=== PATIENT | female | born 1945 | race Caucasian/White ===

== ENCOUNTER 2018-11-25 10:03 | Emergency (ER) | payer OTHER ==
[~2018-11-25] VITALS: Ht 160 cm; Wt 90.7 kg
[~2018-11-25 10:03] MED LIST: CELEXA20 MG PO; CIPROFLOXACIN500 M1 PO; HYDROCODONE-AP1 EAC6 PO; HYDROCODONE-APA1 TA1 PO; LEVOTHYROXIN0.112 M1 PO; LIDOCAINE VISC100 M1 SWISH&SPIT; LIPITOR40 MG PO; MIRALAX17 GM PO; OMEPRAZOLE40 MG PO; ZPAK PO
[2018-11-25 12:02] LABS: ABSOLUTE BASOPHILS 0.1 thou/uL (0.0-0.2); ABSOLUTE EOSINOPHILS 0.2 thou/uL (0.0-0.7); ABSOLUTE LYMPHOCYTES 2.6 thou/uL (0.8-5.3); ABSOLUTE MONOCYTES 0.6 thou/uL (0.0-1.2); ABSOLUTE NEUTROPHILS 4.4 thou/uL (1.6-8.1); BASOPHILS 1.3 %; EOSINOPHILS 2.5 %; HEMATOCRIT 45.6 % (37.0-47.0); HEMOGLOBIN 15.3 gm/dL (12.0-15.0); LYMPHOCYTES 32.7 %; MCH 32.6 pg (26.0-34.0); MCHC 33.5 g/dL (28.0-37.0); MCV 97.3 fL (80.0-100.0); MPV 9.5 fl. (7.2-11.1); NUCLEATED RBCS 0 /100WBC; PLATELET COUNT* 241 thou/uL (150-400); POLYS 55.5 %; RBC 4.69 mil/uL (4.20-5.00); RDW-CV 13.4 % (10.5-14.5); WBC 7.9 thou/uL (4.0-11.0)
[2018-11-25 12:14] LABS: ANION GAP 8 mmol/L (7-16); BUN 7 mg/dL (7-18); CALCIUM 8.5 mg/dL (8.5-10.1); CHLORIDE 102 mmol/L (98-107); CO2 28 mmol/L (21-32); CREATININE 0.7 mg/dL (0.6-1.3); GLUCOSE 118 mg/dL (70-99); POTASSIUM 3.4 mmol/L (3.5-5.1); SODIUM 138 mmol/L (136-145)
[2018-11-25 12:34] LABS: ALBUMIN 2.9 g/dL (3.4-5.0); ALKALINE PHOSPHATASE 121 U/L (46-116); NT-PRO BRAIN NAT PEPTIDE 240 pg/mL (<300); SGOT 24 U/L (15-37); SGPT 35 U/L (30-65); TOTAL BILIRUBIN 0.5 mg/dL (<0.1-1.0); TOTAL PROTEIN 6.8 g/dL (6.4-8.2); TROPONIN-I LEVEL <0.06 ng/mL (<0.06)
[2018-11-25] MEDS ORDERED: VENTOLIN HFA 1818 GM INH (12:53)
[2018-11-25] MEDS ORDERED: PREDNISONE 20 M20 MG PO (12:53)
[2018-11-25 13:03] VITALS: BP 198/81
[2018-11-25 13:21] LABS: URINE BILIRUBIN NEGATIVE (Negative); URINE BLOOD TRACE (Negative); URINE CLARITY CLEAR; URINE COLOR YELLOW; URINE GLUCOSE-RANDOM NEGATIVE (Negative); URINE KETONES NEGATIVE (Negative); URINE LEUKOCYTES-REFLEX TRACE (Negative); URINE NITRITE-REFLEX NEGATIVE (Negative); URINE PROTEIN NEGATIVE (Negative); URINE UROBILINOGEN 0.2 E.U./dl (0.2-1.0)
[2018-11-25 13:36] LABS: SQUAMOUS >10 Many /LPF (0-3)
[2018-11-25 13:39] LABS: BACTERIA-REFLEX 1-9 Few /HPF (None Seen); CASTS None Seen /LPF (None Seen); CRYSTALS None Seen /LPF (None Seen); MUCUS None Seen strn/LPF (None Seen); URINE RBC 0-2 Rare /HPF (0-2); URINE WBC-REFLEX 0-5 Rare /HPF (0-5)
--- NOTE | 2018-11-26 16:59 | EKG ---
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 : 1945 Requested By: Eunice Hamlin Order Number: [id number] MD: Alonzo Galvan Measurements Intervals [place] Rate: 58 P: 57 CO: 184 QRS: 31 QRSD: 80 T: 62 QT: 465 QTc: 457 Interpretive Statements Sinus rhythm Ventricular premature complex Minimal ST depression, lateral leads Compared to ECG 09/02/2016 12:37:09 Ventricular premature complex(es) now present ST (T wave) deviation now present Electronically Signed On 11-26-2018 16:59:11 CDT by Alonzo Galvan [email or web address] <ELECTRONICALLY SIGNED> By: Alonzo Galvan MD, [facility] 11/26/18 1659 1144 1144 Alonzo Galvan MD, [facility] /EPI
== END 2018-11-25 13:04 | disposition home or self-care (01) ==
LOC: M.ERS 10:03
PROVIDERS: Nurse Practitioner Family
DX: J40 Bronchitis, not specified as acute or chronic (principal); I10 Essential (primary) hypertension; K21.9 Gastro-esophageal reflux disease without esophagitis; E78.00 Pure hypercholesterolemia, unspecified; F17.210 Nicotine dependence, cigarettes, uncomplicated; Z88.0 Allergy status to penicillin; Z88.5 Allergy status to narcotic agent

== ENCOUNTER 2018-11-29 20:12 | Emergency (ER) | payer OTHER ==
[~2018-11-29] VITALS: Ht 160 cm; Wt 90.7 kg
[~2018-11-29 20:12] MED LIST changes: +PREDNISONE 20 M20 MG PO; +VENTOLIN HFA 1818 GM INH
[2018-11-29] MEDS ORDERED: NORCO 7.5-3251 EACH PO (21:15)
[2018-11-29] MEDS ORDERED: CIPROFLOXIN HC2.5 M1 OPHTHALMIC (21:15)
[2018-11-29 21:30] VITALS: BP 188/92
== END 2018-11-29 21:30 | disposition home or self-care (01) ==
LOC: M.ERS 20:12
DX: S05.01XA Injury of conjunctiva and corneal abrasion without foreign body, right eye, initial encounter (principal); I10 Essential (primary) hypertension; K21.9 Gastro-esophageal reflux disease without esophagitis; E78.00 Pure hypercholesterolemia, unspecified; F17.210 Nicotine dependence, cigarettes, uncomplicated; Z88.5 Allergy status to narcotic agent; Z88.0 Allergy status to penicillin; X58.XXXA Exposure to other specified factors, initial encounter; Y93.89 Activity, other specified; Y92.89 Other specified places as the place of occurrence of the external cause; Y99.8 Other external cause status

== ENCOUNTER 2020-10-12 20:09 | Emergency (ER) | payer OTHER, MEDICARE ==
[~2020-10-12] VITALS: Ht 160 cm; Wt 97.3 kg
[~2020-10-12 20:09] MED LIST changes: +CIPROFLOXIN HC2.5 M1 OPHTHALMIC; +NORCO 7.5-3251 EACH PO
[2020-10-12 21:21] VITALS: BP 183/88
== END 2020-10-12 21:21 | disposition home or self-care (01) ==
LOC: M.ERS 20:09
DX: R51.9 Headache, unspecified (principal); M54.2 Cervicalgia; I10 Essential (primary) hypertension; K21.9 Gastro-esophageal reflux disease without esophagitis; E78.00 Pure hypercholesterolemia, unspecified; F17.210 Nicotine dependence, cigarettes, uncomplicated; Z88.0 Allergy status to penicillin; Z88.5 Allergy status to narcotic agent; V89.2XXA Person injured in unspecified motor-vehicle accident, traffic, initial encounter; Y93.89 Activity, other specified; Y92.89 Other specified places as the place of occurrence of the external cause; Y99.8 Other external cause status

== ENCOUNTER 2020-12-18 03:00 | Inpatient (IN) | payer MEDICARE ==
[~2020-12-18] VITALS: Ht 160 cm; Wt 93.9 kg
[2020-12-18 03:07] VITALS: BP 221/90
[2020-12-18] MEDS ORDERED: COZAAR 25 MG TA25 M1 PO (03:13)
[2020-12-18 03:35] LABS: ABSOLUTE BASOPHILS 0.1 thou/uL (0.0-0.2); ABSOLUTE EOSINOPHILS 0.1 thou/uL (0.0-0.7); ABSOLUTE LYMPHOCYTES 2.8 thou/uL (0.8-5.3); ABSOLUTE MONOCYTES 0.5 thou/uL (0.0-1.2); ABSOLUTE NEUTROPHILS 5.3 thou/uL (1.6-8.1); BASOPHILS 0.7 %; EOSINOPHILS 1.3 %; HEMATOCRIT 44.1 % (37.0-47.0); HEMOGLOBIN 15.3 gm/dL (12.0-15.0); LYMPHOCYTES 31.9 %; MCH 34.2 pg (26.0-34.0); MCHC 34.7 g/dL (28.0-37.0); MCV 98.6 fL (80.0-100.0); MONOCYTES 6.1 %; NUCLEATED RBCS 0 /100WBC; PLATELET COUNT* 244 thou/uL (150-400); RBC 4.48 mil/uL (4.20-5.00); RDW-CV 13.1 % (10.5-14.5); WBC 8.9 thou/uL (4.0-11.0)
[2020-12-18 03:44] LABS: CALCIUM 9.1 mg/dL (8.5-10.1); CREATININE 0.8 mg/dL (0.6-1.3); POTASSIUM 3.8 mmol/L (3.5-5.1)
[2020-12-18 03:48] LABS: ALBUMIN 3.6 g/dL (3.4-5.0); TOTAL BILIRUBIN 0.7 mg/dL (<0.1-1.0); TOTAL PROTEIN 7.6 g/dL (6.4-8.2)
[2020-12-18 07:05] LABS: URINE BILIRUBIN NEGATIVE (Negative); URINE BLOOD NEGATIVE (Negative); URINE CLARITY CLEAR; URINE COLOR YELLOW; URINE GLUCOSE-RANDOM NEGATIVE (Negative); URINE KETONES NEGATIVE (Negative); URINE LEUKOCYTES-REFLEX NEGATIVE (Negative); URINE PROTEIN NEGATIVE (Negative); URINE SPECIFIC GRAVITY <= 1.005 (1.005-1.030)
[2020-12-18 07:10] LABS: URINE NITRITE-REFLEX POSITIVE (Negative)
[2020-12-18 07:18] LABS: BACTERIA-REFLEX >30 Many /HPF (None Seen); CASTS None Seen /LPF (None Seen); CRYSTALS None Seen /LPF (None Seen); MUCUS 0-3 Light strn/LPF (None Seen); SQUAMOUS 0-3 Few /LPF (0-3); URINE RBC 0-2 Rare /HPF (0-2); URINE WBC-REFLEX 0-5 Rare /HPF (0-5)
[2020-12-18 08:52] VITALS: BP 179/72
[2020-12-18 09:33] LABS: CHOLESTEROL 148 mg/dL (<200); HDL CHOLESTEROL 47 mg/dL (>40); LDL CHOLESTEROL 71 mg/dL (<100); SERUM ASSESSMENT Clear; TC:HDL 3.1 Ratio (Not establshd); TRIGLYCERIDE 153 mg/dL (<150); VLDL 31 mg/dL (<40)
[2020-12-18 09:57] VITALS: BP 165/62
--- NOTE | 2020-12-18 10:19 | NUR ---
PT ADMITTED WITH PANCREATITIS. PT ALERT AND ORIENTED. FAMILY AT BEDSIDE. PT DENIES ANY PAIN AT THIS TIME. PT ORIENTED TO ROOM. PT EDUCATED ON USING CALL LIGHT WHEN NEEDING PAIN MEDS.
--- NOTE | 2020-12-18 11:00 | EKG ---
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: [place] : 1945 Requested By: Areli Camarena Order Number: [id number] MD: Alonzo Galvan Measurements Intervals [place] Rate: 71 P: 19 CT: 202 QRS: 38 QRSD: 84 T: 50 QT: 463 QTc: 504 Interpretive Statements Sinus rhythm Minimal ST depression, lateral leads Prolonged QT interval Compared to ECG 11/25/2018 11:44:18 Prolonged QT interval persists Ventricular premature complex(es) no longer present ST (T wave) deviation still present Electronically Signed On 12-18-2020 11:00:46 CDT by Alonzo Galvan [email or web address] <ELECTRONICALLY SIGNED> By: Alonzo Galvan MD, [facility] 12/18/201099 8 8 Alonzo Galvan MD, [facility] /EPI
[2020-12-18 16:00] VITALS: BP 152/62
--- NOTE | 2020-12-18 16:30 | NUR ---
PT REMAINED ALERT AND ORIENTED. PT RESTING IN BED. PT DENIES ANY PAIN, GI CAME TO SEE PATIENT. HOURLY ROUNDING COMPLETED.
[2020-12-18 19:40] VITALS: BP 148/62
--- NOTE | 2020-12-19 04:22 | NUR ---
PT A&O, ON RA. DENIED PAIN. TOLERATING CLEAR LIQUIDS. NO N/V. UP INDEPENDENTLY TO THE BR. IVF INFUISING. PT SLEPT MOST OF THE NIGHT. CALL LIGHT WITHIN REACH. WILL CONTINUE TO MONITOR.
[2020-12-19 07:00] VITALS: BP 184/76
[2020-12-19 09:21] LABS: MCHC 33.7 g/dL (28.0-37.0); MCV 97.7 fL (80.0-100.0); MPV 8.8 fl. (7.2-11.1); RBC 3.79 mil/uL (4.20-5.00); RDW-CV 13.3 % (10.5-14.5); WBC 4.9 thou/uL (4.0-11.0)
[2020-12-19 09:25] LABS: HEMOGLOBIN 12.5 gm/dL (12.0-15.0)
[2020-12-19 09:38] LABS: ALBUMIN 2.7 g/dL (3.4-5.0); CREATININE 0.7 mg/dL (0.6-1.3); MAGNESIUM 1.4 mg/dL (1.8-2.4); POTASSIUM 3.7 mmol/L (3.5-5.1); TOTAL BILIRUBIN 1.1 mg/dL (<0.1-1.0); TOTAL PROTEIN 5.9 g/dL (6.4-8.2)
[2020-12-19 14:34] VITALS: BP 184/76
[2020-12-19 16:00] VITALS: BP 166/64
--- NOTE | 2020-12-19 16:10 | NUR ---
PT REMAINED ALERT AND ORIENTED. PT RESTING IN BED. GI SIGNED OFF. D/C TOMORROW. FALL RISK PRECAUTIONS IN PLACE. HOURLY ROUNDING COMPLETED.
[2020-12-19 21:50] VITALS: BP 173/82
[2020-12-20 00:10] VITALS: BP 180/72
[2020-12-20 02:08] VITALS: BP 191/77
[2020-12-20 07:15] VITALS: BP 191/88
--- NOTE | 2020-12-20 08:02 | NUR ---
PATIENT SLEPT WELL THROUGHOUT THE NIGHT. VSS, ALTHOUGH BP ELEVATED. NOTIFIED OF ELEVATED BP. NO NEW ORDERS. MEDICATIONS GIVEN ORDERED AND CHARTED. PATIENT INSTRUCTED TO USE CALL LIGHT WHEN NEEDING ASSISTANCE. HOURLY ROUNDS MADE. WILL CONTINUE WITH PLAN OF CARE AND NURSING TO MONITOR.
[2020-12-20] MEDS ORDERED: PRINIVIL20 M1 PO (09:35)
[2020-12-20 09:40] VITALS: BP 184/76
[2020-12-20 09:59] LABS: CALCIUM 8.5 mg/dL (8.5-10.1); CREATININE 0.7 mg/dL (0.6-1.3); POTASSIUM 3.5 mmol/L (3.5-5.1); TOTAL BILIRUBIN 1.2 mg/dL (<0.1-1.0); TOTAL PROTEIN 6.5 g/dL (6.4-8.2)
--- NOTE | 2020-12-20 10:01 | NUR ---
PT GIVEN DISCHARGE INFORMATION, CARE NOTES, AND PRESCRIPTION FAXED. IV REMOVED. PT BELONGINGS GATHERED. PT LEFT AMBULATORY TO HOME.
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
== END 2020-12-20 10:03 | disposition home or self-care (01) | DRG 439 ==
LOC: M.ERS 03:00 → M.ORTHSURG 07:07 → M.TBA-ER 07:07 → M.ORTHSURG 08:54
PROVIDERS: Emergency Medicine; Internal Medicine; ADMIT Internal Medicine; ATTEND Internal Medicine
DX: K85.20 Alcohol induced acute pancreatitis without necrosis or infection (principal); E44.0 Moderate protein-calorie malnutrition; I70.1 Atherosclerosis of renal artery; E78.00 Pure hypercholesterolemia, unspecified; I10 Essential (primary) hypertension; K21.9 Gastro-esophageal reflux disease without esophagitis; J44.9 Chronic obstructive pulmonary disease, unspecified; F17.210 Nicotine dependence, cigarettes, uncomplicated; E78.5 Hyperlipidemia, unspecified; Z20.822 Contact with and (suspected) exposure to COVID-19; Z90.49 Acquired absence of other specified parts of digestive tract; Z79.899 Other long term (current) drug therapy; Z88.0 Allergy status to penicillin; Z88.5 Allergy status to narcotic agent; Z68.36 Body mass index [BMI] 36.0-36.9, adult